=== PATIENT | female | born 1985 | race Two or more races ===

== ENCOUNTER 2017-03-17 02:42 | Emergency (ER) | payer SELFPAY ==
[~2017-03-17] VITALS: Ht 172.7 cm; Wt 95.0 kg
[2017-03-17 02:43] VITALS: BP 145/74
== END 2017-03-17 04:15 | disposition left against medical advice (07) ==
LOC: ER 02:42
DX: Z53.21 Procedure and treatment not carried out due to patient leaving prior to being seen by health care provider (principal)